=== PATIENT | male | born 1980 | race Caucasian/White ===

== ENCOUNTER 2021-04-10 09:38 | Inpatient (IN) | payer OTHER ==
[~2021-04-10] VITALS: Ht 172.7 cm; Wt 81.6 kg
[2021-04-10 09:47] VITALS: BP 153/108
[2021-04-10] MEDS ORDERED: PLAVIX 75 MG TA75 MG PO (09:49)
[2021-04-10] MEDS ORDERED: LIPITOR 20 MG T20 M1 PO (09:49)
[2021-04-10 10:34] LABS: ABSOLUTE BASOPHILS 0.1 thou/uL (0.0-0.2); ABSOLUTE EOSINOPHILS 0.3 thou/uL (0.0-0.7); ABSOLUTE LYMPHOCYTES 1.2 thou/uL (0.8-5.3); ABSOLUTE MONOCYTES 0.6 thou/uL (0.0-1.2); ABSOLUTE NEUTROPHILS 6.1 thou/uL (1.6-8.1); BASOPHILS 1.1 %; EOSINOPHILS 3.6 %; HEMATOCRIT 45.2 % (42.0-52.0); HEMOGLOBIN 15.3 gm/dL (14.0-18.0); LYMPHOCYTES 14.1 %; MCH 28.3 pg (26.0-34.0); MCHC 33.9 g/dL (28.0-37.0); MCV 83.4 fL (80.0-100.0); MONOCYTES 7.5 %; MPV 7.9 fl. (7.2-11.1); NUCLEATED RBCS 0 /100WBC; PLATELET COUNT* 381 thou/uL (150-400); POLYS 73.7 %; RBC 5.42 mil/uL (4.50-6.00); RDW-CV 14.2 % (10.5-14.5); WBC 8.3 thou/uL (4.0-11.0)
[2021-04-10 10:38] LABS: CALCIUM 9.1 mg/dL (8.5-10.1); POTASSIUM 4.2 mmol/L (3.5-5.1)
[2021-04-10 10:42] LABS: TOTAL BILIRUBIN 0.4 mg/dL (<0.1-1.0); TOTAL PROTEIN 8.5 g/dL (6.4-8.2)
--- NOTE | 2021-04-10 11:33 | EKG ---
[place] [address] ELECTROCARDIOGRAM REPORT Name: TRACYMANDO ENCARNACION Room: [facility]-6 ADM [facility]#: [id number] Admission: 04/10/21 Attend Phys: Mando Best Discharge: Date of : 80 Date of Service: 04/10/21 1012 Report #: [id number] THIS REPORT FOR: //name// [facility] ED Test Date: 2021-04-10 Test Time: 10:12:44 Pat Name: MANDO TRACY Department: Room: [facility] Gender: M Hypo Dipper: KAITLYNN : 1980 Requested By: José Miguel Walter Order Number: [id number] MD: Jarod La Measurements Intervals Dodge Rate: 86 P: 52 GA: 155 QRS: 13 QRSD: 82 T: 24 QT: 360 QTc: 431 Interpretive Statements Sinus rhythm Probable left atrial enlargement No previous ECG available for comparison Electronically Signed On 04-10-2021 11:32:50 CDT by Jarod La [email or web address] <ELECTRONICALLY SIGNED> By: Jarod La MD, [facility] 04/10/21 1132 1012 1012 Jarod La MD, [facility] /EPI
[2021-04-10 16:38] VITALS: BP 131/88
--- NOTE | 2021-04-10 17:30 | NUR ---
DR. GILLETTE PAGED REGARDING PHARMACY QUESTIONING LISINOPRIL ORDER.
[2021-04-10 20:00] VITALS: BP 121/80
[2021-04-10 20:34] VITALS: BP 148/88
[2021-04-10 21:10] VITALS: BP 148/88
[2021-04-10] MEDS ORDERED: LANTUS SUBQ (21:47)
[2021-04-10] MEDS ORDERED: NOVOLOG100 UNIT/1 SUBQ (21:52)
[2021-04-11] VITALS (7 sets, daily range): BP systolic 111–128; BP diastolic 72–82
--- NOTE | 2021-04-11 03:02 | NUR ---
PT ADMIT TO ROOM 201 ALERT ORIENTED. UP WITH STAND BY ASSIST. NIHSS 0. SWALLOW SCREEN PASSED. 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 IVF STARTED. BLOOD GLUCOSE CHECKED AND TREATED PRIOR TO ARRIVAL ON FLOOR,
[2021-04-11 04:23] LABS: ALBUMIN 3.3 g/dL (3.4-5.0); ALKALINE PHOSPHATASE 101 U/L (46-116); ANION GAP 7 mmol/L (7-16); BUN 21 mg/dL (7-18); CALCIUM 8.5 mg/dL (8.5-10.1); CHLORIDE 102 mmol/L (98-107); CHOLESTEROL 149 mg/dL (<200); CO2 27 mmol/L (21-32); CREATININE 0.9 mg/dL (0.6-1.3); GLUCOSE 138 mg/dL (70-99); HDL CHOLESTEROL 51 mg/dL (>40); LDL CHOLESTEROL 75 mg/dL (<100); POTASSIUM 3.6 mmol/L (3.5-5.1); SGOT 15 U/L (15-37); SGPT 32 U/L (30-65); SODIUM 136 mmol/L (136-145); TC:HDL 2.9 Ratio (Not establshd); TOTAL BILIRUBIN 0.4 mg/dL (<0.1-1.0); TOTAL PROTEIN 7.3 g/dL (6.4-8.2); TRIGLYCERIDE 117 mg/dL (<150); VLDL 23 mg/dL (<40)
[2021-04-11 04:26] LABS: SERUM ASSESSMENT Clear
[2021-04-12 04:06] LABS: GLYCOHEMOGLOBIN (HGB A1C) 9.8 % (4.8-5.6)
== END 2021-04-11 14:05 | disposition home or self-care (01) | DRG 66 ==
LOC: M.ERS 09:38 → M.TBA-ER 11:26 → M.2W 20:23
PROVIDERS: Emergency Medicine Emergency Medical Services; ADMIT Internal Medicine; ATTEND Internal Medicine
DX: I63.9 Cerebral infarction, unspecified (principal); R73.9 Hyperglycemia, unspecified; G43.909 Migraine, unspecified, not intractable, without status migrainosus; E78.5 Hyperlipidemia, unspecified; G40.909 Epilepsy, unspecified, not intractable, without status epilepticus; Z20.822 Contact with and (suspected) exposure to COVID-19